=== PATIENT | female | born 1955 | race Caucasian/White ===

== ENCOUNTER → 2017-05-24 | Outpatient (CLI) | payer BC ==
--- NOTE | 2017-05-24 14:07 | KCIC ---
Examination: MRI of the right knee without contrast HISTORY: History of acute right knee pain, swelling laterally COMPARISON: None available technique: Multiplanar, multisequence MR imaging of the right knee were performed without contrast FINDINGS: The anterior cruciate ligament, posterior cruciate ligament appear intact. The medial and lateral meniscus demonstrates mild increased in signal likely degeneration. The extensor mechanism is intact. Small knee joint effusion identified. The medial collateral ligament is intact. The lateral collateral ligament complex including the fibular collateral ligament, biceps femoris tendon, popliteus tendon appear intact. There is deep fissuring of cartilage in identified in the medial, lateral, patellofemoral compartment. Small subchondral cystic changes identified in the medial, lateral, compartments. The medial retinaculum, lateral retinacula appears intact. Small popliteal cyst identified. There are bony densities identified anterior to the proximal tibial plateau laterally, best visualized on series 6 image 21 likely large osteophytes or loose bodies. Mild trabecular edema identified in the medial tibial condyle and medial tibial plateau IMPRESSION: 1. Bony densities identified anterior to the proximal tibial plateau laterally, best visualized on series 6 image 21 likely large osteophytes or loose bodies. Knee radiograph is recommended. 2. Small popliteal cyst. Small knee joint effusion. 3. Moderate tricompartmental degenerative changes. 4. Degenerative changes identified in the menisci. Electronically signed by: Zach Farias MD (05/24/2017 2:03 PM)
== END | disposition home or self-care (01) ==
LOC: KCIC MRI 12:43
PROVIDERS: ATTEND Orthopaedic Surgery
DX: M17.11 Unilateral primary osteoarthritis, right knee (principal); M71.21 Synovial cyst of popliteal space [Baker], right knee; M25.761 Osteophyte, right knee
CPT/HCPCS: 73721